=== PATIENT | female | born 1985 | race Caucasian/White ===

== ENCOUNTER → 2019-12-13 16:00 | Outpatient (ROUT) | payer OTHER, SELFPAY | PROVIDERS: Visit Provider Nurse Practitioner Obstetrics & Gynecology | DX: Z34.90 Encounter for supervision of normal pregnancy, unspecified, unspecified trimester (principal); Z36.85 Encounter for antenatal screening for Streptococcus B; Z3A.36 36 weeks gestation of pregnancy | CPT/HCPCS: 87081 ==

== ENCOUNTER → 2019-12-22 16:44 | Outpatient (CLI) | payer OTHER, SELFPAY ==
--- NOTE | 2019-12-22 16:52 | DI.US.S_ITS ---
PROCEDURE: US OB LIMITED INDICATIONS: SIZE LESS THAN DATES OUTSIDE/PRIOR DATING DATA: Last menstrual period (LMP):04/08/19. LMP-based estimated date of delivery (MARKO): 01/13/20. First dating scan (date and location): 12/22/19. Estimated date of delivery (MARKO) from first dating scan: 01/23/20. TECHNIQUE: Real-time scanning was performed of the fetus, with image documentation and biometric measurements. Endovaginal scanning: Performed COMPARISON: None. FINDINGS: General: A single living intrauterine gestation is present. Presentation: Vertex Placenta: Placental position is posterior, without previa. Amniotic fluid index: 10.7 cm, normal range is 5-24 cm. heart rate: 137 beats per minute. Maternal cervical canal: Not measured biometrics: Biparietal diameter: 36 weeks 1 day Head circumference: 36 weeks 3 days Abdominal circumference: 35 weeks 3 days Femur length: 36 weeks 2 days Estimated gestational age from initial scan: not applicable. Composite gestational age from present scan: 35 weeks 3 days Estimated weight: 2787 g Measurement variability for biometric dating: +/- 7 days from 14 weeks to 15 weeks 6 days gestation, +/- 10 days from 16 weeks to 21 weeks 6 days gestation, +/- 2 weeks from 22 weeks to 27 weeks 6 days gestation, +/- 3 weeks for 28 weeks gestation or later. weight reference: 4500 g or EFW >90/95% is considered macrosomia or large for gestational age. EFW <10% is small for gestational age. EFW 5% or less is considered intra-uterine growth restriction. Other: Not applicable. IMPRESSION: Single living intrauterine fetus with ultrasound estimated gestational age of 35 weeks 3 days corresponding to ultrasound MARKO 01/23/2020. Dictated by: Yessi Mahajan MD, PhD on 12/22/2019 at 18:32 Approved by: Yessi Mahajan MD, PhD on 12/22/2019 at 18:36
== END ==
PROVIDERS: Referring Provider Nurse Practitioner Obstetrics & Gynecology; Visit Provider Nurse Practitioner Obstetrics & Gynecology
DX: Z36.4 Encounter for antenatal screening for fetal growth retardation (principal); Z3A.35 35 weeks gestation of pregnancy
CPT/HCPCS: 76815

== ENCOUNTER → 2020-01-06 09:54 | Outpatient (CLI) | payer OTHER, SELFPAY ==
[2020-01-07 02:59] LABS: COVID19 Sendout Not Detected (Not Detect)
== END ==
PROVIDERS: Visit Provider Registered Nurse
DX: Z34.90 Encounter for supervision of normal pregnancy, unspecified, unspecified trimester (principal)
CPT/HCPCS: 87635

== ENCOUNTER 2020-01-08 07:27 | Inpatient (IN) | payer OTHER, SELFPAY ==
--- NOTE | 2020-01-08 07:51 | PM.OBHP.1 ---
OB HPI History of Present Condition Chief complaint: INDUCTION Narrative: Uyen Hammond is a 34 year old female @ [id number] by LMP and early US who presents for elective IOL. She has a hx of rapid labors and lives remotely from the hospital. both she and her , Michele, were screened for novel coronavirus 2 days ago with negative results. Uncomplicated PN care. GBS negative. No cramping, VB or LOF. Favorable CE @ last PN visit. Evaluation Evaluation Baseline heart rate: 140 Variability: Moderate (11-25) monitor accelerations: Present monitor decelerations: Absent Contraction Frequency (minutes): 0 Category of Tracing: I Cervical dilation (cm): 3 Cervical effacement (%): 90 station: -2 PFSH Family History (Updated 01/08/20 @ 09:15 by Selene Farr CNM) Father Hypertension Mother Hypertension Social History (Updated 01/08/20 @ 08:00 by Selene Farr CNM) marital status: number of children: 1 household members: spouse and children lives independently: Yes caregiver/support person: No housing: house education level: college occupational status: employed Smoking Status: Never smoker Meds Home Medications and Allergies Home Medications Medication Instructions Recorded Confirmed Type 21-iron fu-folic acid 1 tab PO DAILY 01/08/20 01/08/20 History [ Complete] Allergies Allergy/AdvReac Type Severity Reaction Status Date / Time No Known Drug Allergies Allergy Unverified 01/08/20 08:01 Review of Systems Review of Systems ROS: Yes All systems reviewed with the patient and are negative except as otherwise documented Exam Vital Signs (past 8 hours): BP 116/78, DW46ils, T36.3C Temporal Presentation: vertex Objective Labs Result Diagrams: 01/08/20 08:10 Assessment and Plan Assessment and Plan Assessment and Plan narrative: Admit, routine orders. IOL consent obtained. Begine pitocin, per protocol. Epidural once mark reglarly. James AROm once epidural has set up. reassess in 4 hours or sooner, PRN. Time Spent with Patient Total time spent with greater than 50% in coordination of care (as documented) at patient's floor/unit and/or counseling patient:: 15-24 minutes
[2020-01-08] MEDS: OXYTOCIN PREMIX 30 UNIT/500 ML PLAST..BAG IV (08:16)
[2020-01-08] MEDS: LACTATED RINGERS 1,000 ML 100 ML IV ×2 (08:16→12:52)
[2020-01-08 08:47] LABS: Add Manual Diff / Slide Review NO; Basophils Absolute Auto 0 /uL (0-100); Basophils Percent Auto 0.5 % (0-2); Eosinophils Absolute Auto 0 /uL (0-450); Eosinophils Percent Auto 0.4 % (2-4); Hemoglobin 12.4 g/dL (12.0-16.0); Lymphocytes Absolute Auto 1500 /uL (1100-4500); Lymphocytes Percent Auto 16.9 % (25-40); Mean Corpuscular Hemoglobin 31.8 PG (26-34); Mean Corpuscular Volume 89.8 fL (80-100); Monocytes Absolute Auto 400 /uL (0-900); Monocytes Percent Auto 4.5 % (3-14); Neutrophils Absolute Auto 7000 /uL (1500-7000); Neutrophils Percent Auto 77.7 % (50-75); Platelet Count 276 X10^3/uL (150-400); Red Cell Distribution Width 13.1 % (11.6-14.8); White Blood Cell Count 9.1 X10^3/uL (4.5-11.0)
[2020-01-08 08:48] LABS: Mean Corpuscular HGB Conc 35.5 % (30-36)
[2020-01-08 09:11] VITALS: BP 116/78
[2020-01-08] MEDS: FENT 2MCG/ML BUPIV 0.125% EPI 200 MCG/100 ML PLAST..BAG 10 MCG EPIDURAL (10:50)
--- NOTE | 2020-01-08 11:55 | PM.OBPNLAB ---
Date/Time Date Patient Seen: 01/08/20 Time Patient Seen: 11:45 Pain Control Pain control: epidural Comments: Patient elected epidural prior to AROM Pelvic Exam Dilation (cm): 4 Effacement (%): 90 station: -2 Comments: AROM preformed, small amount of clear fluid Contractions Contractions on admission: none Pitocin rate (mU/min): 6 Contraction frequency (min): 3 Contraction duration (min): 1 Status status: Category l Heart Rate Baseline: 125 Monitor Accelerations: Present Monitor Decelerations: Absent Monitor Variability: Moderate Assessment and Plan Assessment: induction ongoing Plan: continuous present management Comments: Encourage frequent position changes. Continue pitocin titration to adequate ctx pattern. Reassess in 4 hours or sooner, PRN.
--- NOTE | 2020-01-08 14:58 | PM.OBPRVD ---
Labor & Delivery Delivery date: 01/08/20 Intrapartal events: None and Precipitous Labor < 3 hours Cervical ripening method: none Induction method: per pitocin protocol Delivery augmentation: rupture of membranes Delivery monitor: external FHT and external uterine Route of delivery: Episiotomy description: None L&D Laceration Description: Perineal - 1st Degree Delivery repair: chromic Estimated blood loss (mL): 250 Anesthesia type: Epidural Narrative: Patient labored well with adequate epidural anesthesia. Was checked for c/o increasing rectal pressure and found to be 10/100%/+1. Patient pushed well with coaching to slow descent. NSVB of a vigorous baby boy in LAURA position w/ no NC and easy delivery of the shoulders. [place] was placed on maternal abdomen for drying and skin to skin. Apgars 9/9. Remaining 30 units of pitocin in 500mL LR was increased to 300mL/hr for AMTSL. After cessation of pulsation, the cord was double clamped by CNM and cut by FOB. Cord blood sample was collected and sent. Gentle cord traction led to spontaneous, Schultze delivery of an apparently intact placenta, membranes and 3VC. 1st degree perineal laceration was repaired w/ 3.0 Chromic in the usual fashion. Fundus immediately firm and bleeding small. QBL 250mL. Both mother and baby stable and skin to skin as I left the room. Baby 1: Infant gender: Male Presentation: vertex position: Right Occiput Anterior Placenta delivery description: Spontaneous cord vessel description: 3 Vessels score (1 min): 9 score (5 min): 9 Plan for aftercare: Routine PP orders. Anticipate d/c to home tomorrow.
[2020-01-08] MEDS: IBUPROFEN 600 MG TABLET PO (16:16)
[2020-01-08] MEDS: DOCUSATE 100 MG CAPSULE PO (23:20)
[2020-01-09] MEDS: IBUPROFEN 600 MG TABLET PO ×2 (01:18→07:47)
[2020-01-09] MEDS: LANOLIN OINT 7 GM 1 APPLIC TOP (07:47)
[2020-01-09] MEDS: PRENATAL VIT,CALC/IRON/FOLIC 1 TABLET 1 TAB PO (07:47)
[2020-01-09] MEDS: DOCUSATE 100 MG CAPSULE PO (07:48)
[2020-01-09 08:39] VITALS: BP 127/70; PULSE 91; RESP 16; TEMP 37.1
--- NOTE | 2020-01-09 10:02 | P.DS_ITS ---
Discharge Providers Provider Date of admission: 01/08/20 07:27 Discharge Date: 01/09/20 Primary care physician: Selene Farr CNM Consults: 01/08/20 07:44 Consult to Anesthesiology Urgent Comment: Completed Consulting Provider: Anesthesiologist Reason for consultation: when requested by patient Has provider been notified: No 01/09/20 14:53 Consult to Public Information Director Routine Comment: Discharge provider: Selene Farr CNM Summary Discharge Diagnosis (1) First degree perineal laceration during delivery: Status: Acute Problem Details: Patient is sitting up in bed, eager for discharge to home. Voiding and ambulating independently. well without concerns. Pain is well controlled w/ ibuprofen and Tylenol. Lochia light, no clots. Time Spent with Patient Time attestation: Total time spent providing and/or coordinating discharge services: Objective Labs Result Diagrams: 01/08/20 08:10 Labs: Laboratory Results - last 24 hr 01/08/20 08:10 Blood Type O Positive Antibody Screen Negative Exam Vital Signs (past 8 hours): - 01/09/20 08:39 Temperature 98.8 F Pulse Rate 91 H Respiratory Rate 16 Blood Pressure 127/70 Other: Fundus firm @ U-1, lochia light Discharge Plan Discharge Plan Patient Disposition: Home Discharge orders & Medications Prescriptions: New docusate sodium [Col-Rite] 100 mg capsule 100 mg PO BID 14 Days Qty: 28 RF: 0 acetaminophen 325 mg Tablet 650 mg PO Q6HR PRN (Reason: Pain, Mild (1-3)) 14 Days Qty: 60 RF: 2 ibuprofen 600 mg Tablet 600 mg PO Q6HR PRN (Reason: Pain, Mild (1-3)) 14 Days Qty: 60 RF: 1 Continued Complete 14 mg iron- 400 mcg Tablet 1 tab PO DAILY RF: 0 Follow up/Referrals: Selene Farr CNM [Primary Care Provider] - Diet/Activity/Treatments Diet: Diet as Tolerated and Regular Activity: pelvic rest x 6 weeks Skin/Wound/Dressing Care Report to your healthcare provider any signs of infection, such as:: chills, fever, increased pain, unusual drainage and unusual redness Visit Report/Discharge Packet Instructions: DI for Depression Stand Alone Forms: Discharge: Care Visit Report Forms: Patient Portal/API, Stroke Signs & Symptoms Discharge Data Primary Care Provider: Selene Farr
== END 2020-01-09 12:00 | disposition home or self-care (01) | DRG 807 ==
PROVIDERS: Admitting Provider Nurse Practitioner Obstetrics & Gynecology; PCP Nurse Practitioner Obstetrics & Gynecology; Referring Provider Nurse Practitioner Obstetrics & Gynecology; Visit Provider Nurse Practitioner Obstetrics & Gynecology
DX: O70.0 First degree perineal laceration during delivery (principal); Z37.0 Single live birth; Z3A.39 39 weeks gestation of pregnancy; O62.3 Precipitate labor
CPT/HCPCS: 01967; 36415; 59050; 85025; 86850; 86900; 86901; G0379; J2590

== ENCOUNTER 2020-05-29 21:42 | Observation (INO) | payer OTHER, SELFPAY ==
--- NOTE | 2020-05-29 21:46 | ED_ITS ---
HPI - General Adult General Chief complaint: Abdominal Pain Stated complaint: Patel from [facility] Time Seen by Provider: 05/29/20 21:44 Source: patient Mode of arrival: Ambulatory Limitations: no limitations History of Present Illness HPI narrative: 34-year-old female who arrives by airlift from [place] for concerns of appendicitis. Was seen at an outside facility where she had symptoms of several days of epigastric migrating to right lower quadrant abdominal pain. Some nausea. No vomiting. No change in bowel habits. No urinary symptoms. Is 4 months . Is breast-feeding. Went to this outside facility where she had blood drawn. Had a normal white blood cell count. Normal chemistries. test was negative. Chambers 19 virus test was negative. Had a right lower quadrant abdominal ultrasound which showed an acute appendicitis with a noncompressible appendix measuring up to 8 mm with a small amount of periappendiceal fluid and periappendiceal fat stranding. The transferring facility contacted General surgery at this facility who agreed to see the patient. Patient also received pain medication and Zosyn. Patient reports that she is feeling better after the pain medication. No fevers. Related Data Home Medications Medication Instructions Recorded Confirmed Complete 1 tab PO DAILY 01/08/20 01/08/20 Allergies Allergy/AdvReac Type Severity Reaction Status Date / Time No Known Drug Allergies Allergy Unverified 01/08/20 08:01 Review of Systems Constitutional Constitutional: Denies fever(s) Cardiovascular Cardiovascular: Denies chest pain and Denies dyspnea Respiratory Respiratory: Denies dyspnea Gastrointestinal Gastrointestinal: Reports abdominal pain, Denies nausea and Denies vomiting Genitourinary Genitourinary: Denies dysuria Genitourinary: Denies dysuria Musculoskeletal Musculoskeletal: Denies arthralgias and Denies myalgias Integumentary/Breasts Skin/Breast: Denies rash Neurologic Neurologic: Denies behavioral changes Psychiatric Psychiatric: Denies behavioral changes Hematologic/Lymphatic Hematologic/Lymphatic: Denies easy bleeding and Denies easy bruising Allergic/Immunologic Allergic/Immunologic: Denies urticaria Patient History Medical History First degree perineal laceration during delivery (Inactive) Surgical History H/O adenoidectomy (Inactive) Family History Father Hypertension Mother Hypertension Social History marital status: number of children: 1 household members: spouse and children lives independently: Yes caregiver/support person: No housing: house education level: college occupational status: employed Smoking Status: Never smoker Smoking Status: Never smoker Exam Initial Vital Signs Initial Vital Signs: Vital Signs Temperature 98.7 F 05/29/20 21:48 Pulse Rate 78 05/29/20 21:48 Respiratory Rate 20 05/29/20 21:48 Blood Pressure 115/70 05/29/20 21:48 Pulse Oximetry 99 05/29/20 21:48 Const General: cooperative and comfortable Limitations: mental status not altered HENMT Head: normal to inspection and normocephalic Resp Effort & Inspection: normal respiratory effort Auscultation: clear to auscultation bilaterally Cardio Rate: regular rate Rhythm: regular rhythm GI Inspection: non-distended Palpation: soft, No firm and tender (Mild tenderness to palpation right lower quadrant) Back/Spine/Pelvis Back: No CVA tenderness Skin Lesions: no lesions Rashes: no rashes Neuro General: patient alert and patient awake Cognition: normal cognition Speech: speech normal Extrem General: normal to inspection and capillary refill normal Psych Appearance: grossly normal and well kempt Course Orders Ordered: ED Orders 05/29/20 21:44 COVID19 -ED/INPAT/OR/L&D Stat 05/29/20 22:23 CT abdomen pelvis w con Stat 05/29/20 22:55 Complete Blood Count MAN DIFF Stat Comprehensive Metabolic Panel Stat Lipase Stat Test Serum,Qual Stat Sodium Chloride (Normal Saline 0.9%) 1,000 mls @ 125 mls/hr IV CONT MIKEL Last Admin: 05/29/20 23:32 Dose: 125 mls/hr Documented by: JAIME Vital Signs Vital signs: Vital Signs - 8 hr 05/29/20 21:48 05/29/20 23:19 05/29/20 23:30 Temperature 98.7 F Pulse Rate 78 69 71 Respiratory Rate 20 Blood Pressure 115/70 117/65 Pulse Oximetry 99 98 99 Medical Decision Making Medical Records Medical records reviewed: Yes I reviewed the patient's medical records. Lab Data Lab results reviewed: Yes I reviewed the patient's lab results. Result diagrams: 05/29/20 22:55 05/29/20 22:55 Labs: Lab Results 05/29/20 05/29/20 05/29/20 Range/Units 22:55 22:55 22:55 WBC 13.3 H (4.5-11.0) X10^3/uL RBC 4.08 (4.0-5.2) X10^6/uL Hgb 12.2 (12.0-16.0) g/dL Hct 35.1 L (36-46) % MCV 86.1 (80-100) fL MCH 29.8 (26-34) PG MCHC 34.7 (30-36) % RDW 12.9 (11.6-14.8) % Plt Count 275 (150-400) X10^3/uL Sodium 139 (137-145) mmol/L Potassium 3.5 (3.4-5.1) mmol/L Chloride 108 H (98-107) mmol/L Carbon Dioxide 25 (22-32) mmol/L BUN 10 (7-17) mg/dL Creatinine 0.61 (0.52-1.04) mg/dL Estimated GFR > 60.0 (>60) mL/min BUN/Creatinine Ratio 16.4 (6-22) Glucose 81 (70-100) mg/dL Calcium 8.7 (8.4-10.2) mg/dL Total Bilirubin 0.7 (0.2-1.3) mg/dL AST 23 (14-36) IU/L ALT 18 (<35) IU/L Alkaline Phosphatase 75 (38-126) U/L Total Protein 6.3 (6.3-8.2) g/dL Albumin 3.7 (3.5-5.0) g/dL Globulin 2.6 (1.7-4.1) g/dL Albumin/Globulin Ratio 1.4 (1.0-2.8) Lipase 86 (23-300) U/L Serum , Qual Negative (Negative) Imaging Data CT scan - abdomen/pelvis: Radiologist's Impression: Finding suspicious for mild/early acute appendicitis without complications. MDM Narrative Medical decision making narrative: COVID-19 is negative. This was confirmed from transferring facility. Repeat labs show an increasing leukocytosis. test negative. CT scan requested by general surgery. This confirms acute appendicitis. Discussed the case with Dr. Lua with General surgery who will admit the patient for surgical treatment. Patient informed of admission and surgery. She expressed understanding and agreement. Discharge Plan Departure Patient Disposition: Admitted As Inpatient Clinical Impression: Appendicitis Qualifiers: Appendicitis type: acute appendicitis Acute appendicitis type: unspecified acute appendicitis type Qualified Code(s): K35.80 - Unspecified acute appendicitis Referrals: Selene Farr CNM [Primary Care Provider] -
[2020-05-29 21:48] VITALS: BP 115/70; PULSE 78; RESP 20; TEMP 37.1; O2SAT 99
--- NOTE | 2020-05-29 22:23 | DI.CT.S_ITS ---
PROCEDURE: CT ABDOMEN PELVIS W CON INDICATIONS: RLQ ABD pain concern for appy TECHNIQUE: After the administration of intravenous contrast, 5 mm thick sections acquired from the diaphragm to the symphysis. 5 mm coronal and sagittal reformats were acquired. For radiation dose reduction, the following was used: automated exposure control, adjustment of mA and/or kV according to patient size. COMPARISON: None. FINDINGS: Image quality: Excellent. ABDOMEN: Lung bases: Lung bases are clear. Heart size is normal. Subcentimeter hepatic foci are statistically cysts or hemangiomas, although technically too small to characterize accurately and therefore nonspecific. Gallbladder unremarkable . Biliary system is non dilated. Pancreas enhances normally. Spleen is normal in size and enhancement. No adrenal nodules. Kidneys demonstrate normal size and enhancement, without hydronephrosis. Appendix is seen in the right low pelvis, and mildly distended with fluid and debris/stool. This measures approximately 6 mm in diameter. There is possible mucosal enhancement and mural thickening. Low lying cecum. No free fluid or air. Colonic diverticulosis is seen without evidence of acute complication. Nodes and vessels: No retroperitoneal or mesenteric adenopathy by size criteria. Aorta and inferior vena cava are normal in size. Miscellaneous: No ventral hernias. PELVIS: Genitourinary: Bladder unremarkable. Small amount of fluid in the cul-de-sac. Miscellaneous: No inguinal hernias or adenopathy. Bones: No suspicious bony lesions. No vertebral body compression fractures. IMPRESSION: Findings suspicious for early versus low-grade acute appendicitis. Please correlate clinically and with laboratory data. Additional chronic and incidental findings as above. Findings concordant with the preliminary study interpretation provided at the time of the exam. Dictated by: Idris Roland M.D. on 05/30/2020 at 8:03 Approved by: Idris Roland M.D. on 05/30/2020 at 8:08
[2020-05-29 23:15] LABS: Hematocrit 35.1 % (36-46); Hemoglobin 12.2 g/dL (12.0-16.0); Mean Corpuscular HGB Conc 34.7 % (30-36); Mean Corpuscular Hemoglobin 29.8 PG (26-34); Mean Corpuscular Volume 86.1 fL (80-100); Platelet Count 275 X10^3/uL (150-400); Red Blood Cell Count 4.08 X10^6/uL (4.0-5.2); Red Cell Distribution Width 12.9 % (11.6-14.8); White Blood Cell Count 13.3 X10^3/uL (4.5-11.0)
[2020-05-29 23:19] VITALS: PULSE 69; O2SAT 98
[2020-05-29 23:24] LABS: Alanine Aminotransferase 18 IU/L (<35); Albumin 3.7 g/dL (3.5-5.0); Albumin Globulin Ratio 1.4 (1.0-2.8); Alkaline Phosphatase 75 U/L (38-126); Aspartate Aminotransferase 23 IU/L (14-36); BUN Creatinine Ratio 16.4 (6-22); Bilirubin Total 0.7 mg/dL (0.2-1.3); Blood Urea Nitrogen 10 mg/dL (7-17); Calcium 8.7 mg/dL (8.4-10.2); Carbon Dioxide 25 mmol/L (22-32); Chloride 108 mmol/L (98-107); Estimated Glomerular Filt Rate > 60.0 mL/min (>60); Globulin 2.6 g/dL (1.7-4.1); Glucose 81 mg/dL (70-100); HEMOLYSIS < 15 (0-50); Lipase 86 U/L (23-300); Potassium 3.5 mmol/L (3.4-5.1); Sodium 139 mmol/L (137-145); Total Protein 6.3 g/dL (6.3-8.2)
[2020-05-29 23:30] VITALS: BP 117/65; PULSE 71; O2SAT 99
[2020-05-29] MEDS: SODIUM CHLORIDE 0.9% 1,000 ML 125 ML IV (23:32)
[2020-05-29 23:35] LABS: Pregnancy Test Serum,Qual Negative (Negative)
[2020-05-30] VITALS (14 sets, daily range): BP systolic 104–139; BP diastolic 54–83; PULSE 57–90; RESP 10–20; TEMP 36.4–37.2; O2SAT 94–99; BMI 23.6
--- NOTE | 2020-05-30 | PATH_ITS ---
[facility] Accession Number: [id number] . 01 Material submitted: . appendix - APPENDIX . 02 Diagnosis: Appendix, Appendectomy: Acute suppurative appendicitis with serositis. Negative for dysplasia and malignancy. MRV 06/03/2020 1044 Local . 02 Electronically signed: . Dara Antonio MD, Pathologist NPI- [id number] . 01 Gross description: . Received in formalin, labeled appendix, and consists of an 8.5 cm in length by 1.2 cm in diameter vermiform appendix with attached kim-yellow lobulated mesoappendix measuring 3.0 x 1.0 x 0.6 cm. The serosa is kim-pink and smooth with focal areas of purulent exudate. Sectioning reveals a kim mucosa and a lumen measuring up to 0.5 cm in diameter. The wall thickness measures 0.2 cm in thickness and no perforations are identified. Latex Caster sections are submitted. . A1: margin, en face (blue) and central cross-sections. A2: bisected tip. ([id number]) /MRV 05/31/2020 1003 Local . 02 Pathologist provided ICD-10: K35.80 . 02 CPT . 939727 Performed at: 01 [facility] [address], [place], [place] [id number] MD Ilir Herrera MD Phone: [phone] Performed at: 02 [facility] [address] [place], [place] [id number] MD Dara Antonio MD Phone: [phone]
--- NOTE | 2020-05-30 00:05 | PM.HP.1 ---
History of Present Illness History of Present Illness Date Patient Seen: 05/30/20 Time Patient Seen: 00:05 Chief complaint: Appy from I Narrative: The patient is a woman who developed abdominal pain on Wednesday that was epigastric and then mid abdominal the moved her right lower quadrant. She has never had pain like this before. She has had months of diarrhea with 1 loose stool every morning. Anorexic without vomiting. Pain increases with movement but she did have pain medicine prior to her arrival transferred from [facility]. Patient History Medical History First degree perineal laceration during delivery (Inactive) Surgical History H/O adenoidectomy (Inactive) Family & Social History Family History Father Hypertension Mother Hypertension Social History: household members spouse,children lives independently Yes caregiver/support person No Tobacco & Substance use: Smoking Status Never smoker Meds Home Medications and Allergies Home Medications Medication Instructions Recorded Confirmed Type Complete 1 tab PO DAILY 01/08/20 05/29/20 History Allergies Allergy/AdvReac Type Severity Reaction Status Date / Time No Known Drug Allergies Allergy Unverified 01/08/20 08:01 Review of Systems Review of Systems Narrative: No problems with toothache earache trouble swallowing no cough cold or asthma. She does have an occasional irregular heart beat. No no murmurs. No chest pain or other cardiac disease is known. No black or bloody bowel movements. No dysuria or hematuria. Last period was prior to . She had a normal vaginal delivery about 5 months ago. She is breast feeding. No seizures or blackouts. No psychiatric problems like anxiety or depression. Exam Vital Signs (past 8 hours): - 05/29/20 21:48 05/29/20 23:19 05/29/20 23:30 Temperature 98.7 F Pulse Rate 78 69 71 Respiratory Rate 20 Blood Pressure 115/70 117/65 Pulse Oximetry 99 98 99 Oxygen Delivery Method Room Air Narrative Exam Narrative: Very pleasant woman in no apparent distress. Her vital signs are noted. Eyes are nonicteric. Pupils round reactive to light. Lungs are clear to auscultation without rales or rhonchi. Equal percussion. Heart regular rate and rhythm without murmur gallop. No bruit. Her abdomen is scaphoid and soft. There is tenderness without guarding in the right lower abdomen. No ventral hernias appreciated. Patient is alert and oriented. Speech rate and content are appropriate. Affect is appropriate. Objective Imaging CT scan - abdomen: My impression: Thickened appendix unusually deep in the pelvis with a large amount of stool in the cecum. Labs Result Diagrams: 05/29/20 22:55 05/29/20 22:55 Labs: Laboratory Results - last 24 hr 05/29/20 05/29/20 05/29/20 22:55 22:55 22:55 WBC 13.3 H RBC 4.08 Hgb 12.2 Hct 35.1 L MCV 86.1 MCH 29.8 MCHC 34.7 RDW 12.9 Plt Count 275 Sodium 139 Potassium 3.5 Chloride 108 H Carbon Dioxide 25 BUN 10 Creatinine 0.61 Estimated GFR > 60.0 BUN/Creatinine Ratio 16.4 Glucose 81 Calcium 8.7 Total Bilirubin 0.7 AST 23 ALT 18 Alkaline Phosphatase 75 Total Protein 6.3 Albumin 3.7 Globulin 2.6 Albumin/Globulin Ratio 1.4 Lipase 86 Serum , Qual Negative Assessment & Plan Assessment & Plan narrative: Initially patient was presented with an ultrasound but because of her atypical story and initial wore normal white count a CT scan was performed. Repeat labs however showed an elevated white blood cell count and given the location of the appendix IA find it hard to believe they sought with an ultrasound. In any event she does have acute appendicitis. There is a fair amount of inflammation and some fluid around it which to me is worrisome for possible perforation especially since her symptoms actually seemed to have started on Wednesday. I am not sure how chronic diarrhea fits into this picture if at all. Will proceed to the operating room if. Given the fact that her baby only breast feeds and has not been taking a bottle I would prefer to do this promptly so that she can return to breast feeding. I have discussed the operation with her including risks of bleeding infection injury to internal organs and hernia. She appears to understand wishes to proceed. The possibility of other diagnoses and other procedures was also discussed with her.
[2020-05-30 00:07] LABS: Neutrophils Absolute Manual 10773 /uL (3000-5900); Total Cells Counted 100
[2020-05-30 00:08] LABS: RBC Morphology Normal Morphology
[2020-05-30] MEDS: LACTATED RINGERS 1,000 ML 42 ML IV ×2 (01:38→02:43)
[2020-05-30] MEDS: PIPERACILLIN-TAZO 3.375 GM/50 ML FROZ.PIGGY IV (01:45)
--- NOTE | 2020-05-30 02:18 | SUR.OPER ---
Supine on padded OR bed, head on pillow, arms secured on padded arm boards at <90 degrees abduction, legs uncrossed, safety belt at thigh, tape over blanket over lower legs.
[2020-05-30] MEDS: BUPIVACAINE 0.5% (PF) VIAL 30 ML INJ (02:31)
--- NOTE | 2020-05-30 03:20 | PM.OP.1 ---
Operative Date/Time/Diagnoses Date of procedure: 05/30/20 Time of procedure: 03:21 Pre-op diagnosis: Acute appendicitis Post-op diagnosis: same Procedure & Clinicians Procedure: Laparoscopic appendectomy Same procedure as scheduled: Yes Indications: Right lower quadrant tenderness an abnormal CT scan and an elevated white blood cell count Surgeon: Mark Lua Click Yes if Unassisted: Yes Anesthesia Type: General Operative Notes Findings: Inflammation at the base of the appendix. The appendix beyond the bases actually normal. No evidence of perforation. Closure Type: primary Specimen(s): other (Appendix) Prosthetic devices, grafts, tissues, transplants, or devices: None Estimated Blood Loss (mL): 5 Blood products transfused: none Procedure in detail: The patient is placed supine on the operating room table and underwent general endotracheal anesthesia. A Seay catheter was inserted and she was prepped draped the usual fashion. Local anesthetic was infiltrated beneath the umbilicus. Curvilinear incision was made and carried down under direct vision through the fascia into the peritoneal cavity. Stay sutures of 0 Vicryl were placed in the fascia. A 12 mm port was inserted and 2 additional 5 mm ports were placed 1 between the pubis and umbilicus in the 2nd left lower quadrant. The patient was repositioned on the table in the cecum elevated of the pelvis. The appendix was readily identified. It actually appeared to be normal except at the base which was inflamed. I elevated the appendix and divided the mesoappendix using cautery and sharp dissection. The artery was cauterized carefully and there was no bleeding from it. The base was cleaned and just beyond the base of the appendix the cecal wall was soft and pliable. I inserted a 45 mm linear stapling device and placed it across the cecum just beyond the base of the appendix in normal appearing cecum. The tissue was transected the appendix from the cecum and immediately placed in a bag. He was removed without difficulty or spillage. The staple line looked intact. The right lower quadrant was irrigated as was the pelvis. All the fluid was suctioned out. There was no other evidence of abnormality. The ports were all removed. The stay sutures at the umbilicus were tied and additional 2 0 PDS was placed between them. The wounds were irrigated and 4 0 Vicryl subcuticular interrupted sutures were used to close all of the skin incisions. Mastisol and Steri-Strips were applied and the patient was awakened extubated and taken recovery area in good condition. Complications: none Post-operative Condition: stable Disposition: PACU Plan for aftercare: Toe observation
[2020-05-30] MEDS: fentaNYL 100 MCG/2 ML INJ IV ×2 (03:22→03:27)
[2020-05-30] MEDS: BENZOCAINE/MENTHOL 1 LOZ PKT 1 EACH PO (03:42)
[2020-05-30] MEDS: LACTATED RINGERS 1,000 ML 100 ML IV (04:26)
--- NOTE | 2020-05-30 05:21 | PC.ADMIT ---
Patient admitted to room 204 from PACU at 0400 following lap appendectomy. Is alert and oriented. Breath sounds CTA with RA sat of 98%. HRR. Denies nausea. BT present. Assisted to bathroom, SBA, and patient voided 150cc urine but states she has some burning/dysuria; RIGGING MAN reported patient had catheter in OR which was removed in PACU. Is able to move herself in bed. 3 bandaid dressings to abdomen intact and without drainage. No other skin issues. Bilateral calf SCD's applied upon arrival to room. Spouse present. States only pain she is having is in the right shoulder, severity of 3/10, but declines offer of pain medication. Fall risk score is low. Oriented to call light and bed controls. [address] Admission Note: The patient,Uyen Hammond,34 y/o, was given written information regarding hospital policies, unit procedures and contact persons. Patient's smoking status: Never smoker. Vital Signs - 8 hr 05/29/20 21:48 05/29/20 23:19 05/29/20 23:30 Temperature 98.7 F Pulse Rate 78 69 71 Respiratory Rate 20 Blood Pressure 115/70 117/65 Pulse Oximetry 99 98 99 05/30/20 00:00 05/30/20 00:01 05/30/20 00:30 Temperature Pulse Rate 84 69 78 Respiratory Rate Blood Pressure 127/61 Pulse Oximetry 99 97 99 05/30/20 03:12 05/30/20 03:17 05/30/20 03:22 Temperature 98.3 F Pulse Rate 90 67 77 Respiratory Rate 20 11 L 10 L Blood Pressure 123/76 127/75 126/83 Pulse Oximetry 98 97 96 05/30/20 03:30 05/30/20 03:35 05/30/20 03:45 Temperature 98.9 F Pulse Rate 60 67 67 Respiratory Rate 12 12 11 L Blood Pressure 119/72 111/67 118/72 Pulse Oximetry 96 99 98 05/30/20 04:00 05/30/20 04:30 05/30/20 05:00 Temperature 98.3 F 98.0 F 98.0 F Pulse Rate 63 59 L 57 L Respiratory Rate 18 18 18 Blood Pressure 119/64 111/68 139/54 L Pulse Oximetry 98 96 98
[2020-05-30] MEDS: IBUPROFEN 400 MG TABLET PO (08:48)
--- NOTE | 2020-05-30 12:24 | P.DS_ITS ---
History of Present Illness History of Present Illness Chief complaint: Appy from [facility] Narrative: The patient is a woman who developed abdominal pain on Wednesday that was epigastric and then mid abdominal the moved her right lower quadrant. She has never had pain like this before. She has had months of diarrhea with 1 loose stool every morning. Anorexic without vomiting. Pain increases with movement but she did have pain medicine prior to her arrival transferred from [facility]. Discharge Providers Provider Date of admission: 05/30/20 00:00 Discharge Date: 05/30/20 Primary care physician: Mejia Calle MD Consults: 05/30/20 03:40 Consult to Discharge Planning Routine Comment: Discharge provider: Mark Lua MD Summary Hospital Course Discharge Diagnosis: Acute appendicitis. Hospital Course: The patient underwent a laparoscopic appendectomy. Her appendix did not appear to be ruptured. Her postoperative course was smooth. She was ambulating the same day and tolerating p.o. well. She is discharged on ibuprofen for pain to follow-up as needed. Status at Discharge Cognitive/behavioral status at discharge: oriented Functional status at discharge: independent ambulation Overall status at discharge: patient is progressing back to baseline Exam Vital Signs (past 8 hours): - 05/30/20 04:30 05/30/20 05:00 05/30/20 06:00 Temperature 98.0 F 98.0 F 98.5 F Pulse Rate 59 L 57 L 61 Respiratory Rate 18 18 18 Blood Pressure 111/68 139/54 L 104/58 L Pulse Oximetry 96 98 94 05/30/20 07:12 Temperature 97.5 F L Pulse Rate 75 Respiratory Rate 16 Blood Pressure 111/67 Pulse Oximetry 94 Oxygen Delivery Method Room Air Oxygen Flow Rate 0 Narrative Exam Narrative: Abdomen is scaphoid soft . Band-Aids a dry and intact. Objective Labs Result Diagrams: 05/29/20 22:55 05/29/20 22:55 Labs: Laboratory Results - last 24 hr 05/29/20 05/29/20 05/29/20 22:55 22:55 22:55 WBC 13.3 H RBC 4.08 Hgb 12.2 Hct 35.1 L MCV 86.1 MCH 29.8 MCHC 34.7 RDW 12.9 Plt Count 275 Total Counted 100 Seg Neutrophils % 75.0 H Band Neutrophils % 6.0 Lymphocytes % (Manual) 16.0 L Monocytes % (Manual) 2.0 Basophils % (Manual) 1.0 Neutrophils # (Manual) 02031 H RBC Morphology Normal morphology Sodium 139 Potassium 3.5 Chloride 108 H Carbon Dioxide 25 BUN 10 Creatinine 0.61 Estimated GFR > 60.0 BUN/Creatinine Ratio 16.4 Glucose 81 Calcium 8.7 Total Bilirubin 0.7 AST 23 ALT 18 Alkaline Phosphatase 75 Total Protein 6.3 Albumin 3.7 Globulin 2.6 Albumin/Globulin Ratio 1.4 Lipase 86 Serum , Qual Negative Discharge Assessment & Plan Assessment and Plan Assessment: Doing well postop. Discharge to follow up in the office by either myself or her primary care provider since she lives on [facility]. Discharge Plan Discharge Plan Patient Disposition: Home Discharge comment: Your appendix did not appear to be ruptured. If your di arrhea persist he should have her stool tested for pathogens. Discharge orders & Medications Prescriptions: New ibuprofen 600 mg tablet 600 mg PO TID PRN (Reason: pain) Qty: 14 RF: 0 Continued Complete 14 mg iron- 400 mcg Tablet 1 tab PO DAILY RF: 0 omega 8-xiu-ruj-fish oil [Fish Oil] 1,000 mg (120 mg-180 mg) Capsule 1 cap PO DAILY RF: 0 Follow up/Referrals: Selene Farr CNM [Primary Care Provider] - Mejia Calle MD [Non-Staff] - 2 Weeks (If Dr. Calle will see you. If not call my office the make an appointment to see me.([phone] [facility]). If you need to reach a doctor from our practice please call our office. If the office is closed listen to the entire message and at the end you will be connected with the page tire regrooving machine operator who will call the doctor on-call for our pra ctice.) Mark Lua MD [Physician] - (Please call Dr. Lua's office to schedule your follow up appointment.) Diet/Activity/Treatments Diet: Diet as Tolerated Activity: Try not to lift over 10 lb or strain for the next 4 weeks. You may walk. Try to have someone lift your baby into your arms rather than picking him up. Skin/Wound/Dressing Care Report to your healthcare provider any signs of infection, such as:: chills, fever, night sweats, increased pain, unusual drainage and unusual redness Dressing: Remove the Band-Aids tomorrow and shower. No pool or tub for 2 weeks. Visit Report/Discharge Packet Instructions: DI for an Appendectomy, DI for Laparoscopy, [facility]: Wound Care Visit Report Forms: Patient Portal/API, Stroke Signs & Symptoms Discharge Data Primary Care Provider: Selene Farr Attending Provider: Mark Lua Admkendall Date/Time: 05/30/20 00:00
--- NOTE | 2020-05-30 12:44 | PC.NURSE ---
DISCHARGE: PATIENT TOLERATED LUNCH, READY FOR DISCHARGE. CONFIRMS UNDERSTANDING OF ALL DC HOME INSTRUCTIONS, WILL HOUSEKEEPER IBUPROFEN SCRIPT ELECTRONICALLY SENT TO HER PHARMACY. IV DC'D INTACT. SPOUSE HERE TO TAKE PATIENT HOME. PRIORITY BOARDING PASS PROVIDED.
--- NOTE | 2020-05-30 13:00 | CM.DANOTE ---
DCP: Case received, EMR reviewed and met with patient. , Michele, was at bedside. Introduced self and role. Patient independent at baseline, and was able to complete DCP assessment. Patient is a 34 year old female who admitted early this morning to the care of the hospitalist/surgical team. PCP: Dr. Farr. Payer: confirmed: [employer]. Patient came to the hospital via air transportation from [place] for abdominal pain. Patient was diagnosed with an acute appendicitis. She had appendectomy this morning. Met with patient briefly, in the room. She is alert and oriented, pleasant. She resides with her in [place], and has a 4 month old baby. P: Patient is supposed to be discharged home today. Shelley Stinson RN/[facility]
--- NOTE | 2020-06-12 18:40 | PC.NURSE ---
Late Entry; LR infusion initiated 05/30 at 04:26 discontinued at time of discharge, 12:56.
== END 2020-05-30 12:56 | disposition home or self-care (01) ==
LOC: ED 22:43 → AC 05-30 00:01
PROVIDERS: Admitting Provider Specialist; Emergency Provider Emergency Medicine; PCP Nurse Practitioner Obstetrics & Gynecology; Referring Provider Emergency Medicine; Visit Provider Specialist
PROC: 0DTJ4ZZ Resection of Appendix, Percutaneous Endoscopic Approach (ICD-10-PCS; CPT 44970; principal; 2020-05-30 01:30)
DX: K35.80 Unspecified acute appendicitis (principal)
CPT/HCPCS: 44970; 74177; 80053; 83690; 84703; 85025; 87070; 87075; 87205; 96361; 96374; 96375; 99219; 99283; 99284; G0378; J0330; J1100; J2405; J2543; J2704; J3010; Q9967

== ENCOUNTER 2024-07-28 12:46 | Emergency (ER) | payer OTHER, MEDICAID, SELFPAY ==
[2020-05-30 04:35] VITALS: BMI 23.6
[2024-07-28] VITALS (14 sets, daily range): BP systolic 129–188; BP diastolic 69–100; PULSE 65–92; RESP 14–16; TEMP 36.9–37.2; O2SAT 96–100; BMI 21.3
--- NOTE | 2024-07-28 13:14 | ED_ITS ---
HPI - Recheck/Abnormal Lab/Rx General Chief Complaint: Recheck/Abnormal Lab/Rx Stated Complaint: swelling in arms, abd normal labs Time Seen by Provider: 07/28/24 13:13 Source: patient Mode of arrival: Ambulatory History of Present Illness HPI narrative: 38-year-old female arrived here by private vehicle, sent for bilateral upper extremity venous Doppler studies, for wauzo-traazmu-nrhz-left arm swelling. Patient had swelling xdkzq-uszqgyo-seaj-left upper extremity for the last 2 weeks after initial triceps workout, no subsequent interim recurrent injuries. Also feels that she can not get a good deep breath. Related Data Home Medications Medication Instructions Recorded Confirmed vits,calcium 21-iron fum 1 tab PO DAILY 01/08/20 06/19/20 14 mg iron-folic acid 400 mcg tablet ( Complete) omega 9-hog-mol-fish oil 1,000 mg 1 cap PO DAILY 05/30/20 06/19/20 (120 mg-180 mg) capsule (Fish Oil) Previous Rx's Medication Instructions Recorded ibuprofen 600 mg tablet 600 mg PO TID PRN pain #14 tabs 05/30/20 Allergies Allergy/AdvReac Type Severity Reaction Status Date / Time No Known Drug Allergies Allergy Verified 06/19/20 13:19 Patient History Medical History (Updated 07/28/24 @ 17:24 by Efrain Guillen MD) First degree perineal laceration during delivery Surgical History H/O adenoidectomy Family History Father Hypertension Mother Hypertension Social History marital status: number of children: 1 household members: spouse and children lives independently: Yes caregiver/support person: No housing: house education level: college occupational status: employed Smoking Status: Never smoker alcohol intake: current Smoking Status: Never smoker alcohol intake frequency: a few times a week Substance Use Type: does not use Exam Initial Vital Signs Initial Vital Signs: Vital Signs Temperature 98.4 F 07/28/24 12:55 Pulse Rate 69 07/28/24 12:55 Respiratory Rate 14 07/28/24 12:55 Blood Pressure 188/100 H 07/28/24 12:55 Pulse Oximetry 100 07/28/24 12:55 Oxygen Delivery Method Room Air 07/28/24 12:55 Course Orders Ordered: Discontinued Medications Cefdinir (Cefdinir 300 Mg Capsule) 300 mg PO NOW ONE Stop: 07/28/24 15:27 Last Admin: 07/28/24 15:34 Dose: 300 mg Documented By: JENNA Sodium Chloride (Normal Saline 0.9%) 1,000 mls @ 1,000 mls/hr IV BOLUS ONE Stop: 07/28/24 15:22 Last Infusion: 07/28/24 16:31 Dose: Infused Documented By: Admin: 07/28/24 14:34 Dose: 1,000 mls/hr Documented By: PAPI Vital Signs Vital signs: Vital Signs - 8 hr 07/28/24 12:55 07/28/24 13:05 07/28/24 13:23 Temperature 98.4 F Pulse Rate 69 65 Respiratory Rate 14 Blood Pressure 188/100 H 129/69 Pulse Oximetry 100 100 Oxygen Delivery Method Room Air 07/28/24 13:23 07/28/24 13:30 07/28/24 13:30 Temperature Pulse Rate 67 68 Respiratory Rate Blood Pressure 134/82 Pulse Oximetry 98 97 Oxygen Delivery Method 07/28/24 14:01 07/28/24 14:30 07/28/24 15:12 Temperature Pulse Rate 70 68 Respiratory Rate Blood Pressure Pulse Oximetry 99 99 96 Oxygen Delivery Method 07/28/24 15:30 07/28/24 16:00 07/28/24 16:57 Temperature 98.9 F Pulse Rate 77 70 92 H Respiratory Rate 16 Blood Pressure 144/80 H Pulse Oximetry 98 98 99 Oxygen Delivery Method MDM - Recheck/Abnormal Lab/Rx Lab Data Attestation: I reviewed the patient's lab results. Lab results narrative: White blood cell count 4700, hemoglobin 13, platelets 249740. Basic metabolic panel unremarkable, liver function show mild transaminitis, normal T bili noted. Urinalysis shows infection changes, urine culture requested 07/28/24 13:21 07/28/24 13:21 Labs: Lab Results 07/28/24 07/28/24 Range/Units 13:21 15:06 WBC 4.7 (4.5-11.0) X10^3/uL RBC 4.19 (4.0-5.2) X10^6/uL Hgb 13.0 (12.0-16.0) g/dL Hct 37.3 (36-46) % MCV 88.9 (80-100) fL MCH 31.1 (26-34) PG MCHC 35.0 (30-36) % RDW 13.0 (11.6-14.8) % Plt Count 328 (150-400) X10^3/uL Neut % (Auto) 58.6 (50-75) % Lymph % (Auto) 34.0 (25-40) % Rich % (Auto) 4.8 (3-14) % Eos % (Auto) 1.6 L (2-4) % Baso % (Auto) 1.0 (0-2) % Neut # (Auto) 2800 (5399-8161) /uL Lymph # (Auto) 1600 (3306-9393) /uL Rich # (Auto) 200 (0-900) /uL Eos # (Auto) 100 (0-450) /uL Baso # (Auto) 0 (0-100) /uL Sodium 138 (137-145) mmol/L Potassium 3.7 (3.4-5.1) mmol/L Chloride 105 (98-107) mmol/L Carbon Dioxide 27 (22-32) mmol/L BUN 10 (7-17) mg/dL Creatinine 0.66 (0.52-1.04) mg/dL Estimated GFR > 60 (>60) mL/min BUN/Creatinine Ratio 15.2 (6-22) Glucose 104 H (70-100) mg/dL Calcium 9.1 (8.4-10.2) mg/dL Total Bilirubin 0.6 (0.2-1.3) mg/dL AST 150 H (14-36) IU/L ALT 90 H (<35) IU/L Alkaline Phosphatase 51 (38-126) U/L Total Protein 6.8 (6.3-8.2) g/dL Albumin 4.2 (3.5-5.0) g/dL Globulin 2.6 (1.7-4.1) g/dL Albumin/Globulin Ratio 1.6 (1.0-2.8) HCG, Quant < 2.39 mIU/mL Urine Color Yellow Urine Appearance Clear Urine pH 8.0 (4.5-8.0) Ur Specific [place] 1.010 (1.000-1.035) Urine Protein Negative (Negative) Urine Glucose (UA) Negative (Negative) g/dL Urine Ketones Negative (NEGATIVE) Urine Occult Blood 2+ H (Negative) Urine Nitrate Negative (Negative) Urine Bilirubin Negative (NEGATIVE) Urine Urobilinogen 0.2 (0.2) E.U./dL Ur Leukocyte Esterase 1+ H (NEGATIVE) Urine RBC 0-1/hpf (0-5/HPF) Urine WBC 1-5/hpf (0-5/HPF) Ur Squamous Epith Cells 5-10 /hpf H (0-5/HPF) Urine Bacteria Many (>30) H (None) Ur Culture Indicated? Specimen cultured Vol Urine Centrifuged 10ml (spun) Imaging Data Bilateral upper extremity venous Doppler study: Radiologist's Impression: Close Chest CTA (Signed) Juan A Flores - 07/28/24 Peripheral Vascular Ultrasound (Signed) Fly Rey - 07/28/24 Launch?[address] [address] Ultrasound Report Signed Patient: Uyen Hammond MR#: [id number] : 1985 Acct:[id number] Age/Sex: 38 / F Date of Service: 07/28/24 Loc: ED Accession Number: [id number] Procedure: US perip venous up extrem brayan Ordering Provider: Efrain Guillen MD PROCEDURE: US [facility] VENOUS UP EXTREM BRAYAN INDICATIONS: Sent from [place], swelling R>L arms TECHNIQUE: Real-time imaging, as well as color and pulse Doppler interrogation, was performed of both upper extremity deep veins from the inferior neck to the antecubital fossa. COMPARISON: None. FINDINGS: Right: The internal jugular veins, visualized portions of the subclavian veins, axillary veins, and brachial veins are free of intraluminal thrombus. Where physically possible, the veins are normally compressible. Color and pulse Doppler demonstrate normal intraluminal flow, with expected phasicity and pulsatility. Additional scanning of the cephalic and basilic veins of the superficial system demonstrates normal compressibility, without thrombus. Left: The internal jugular veins, visualized portions of the subclavian veins, axillary veins, and brachial veins are free of intraluminal thrombus. Where physically possible, the veins are normally compressible. Color and pulse Doppler demonstrate normal intraluminal flow, with expected phasicity and pulsatility. Additional scanning of the cephalic and basilic veins of the superficial system demonstrates normal compressibility, without thrombus. IMPRESSION: No findings of deep venous thrombosis can be seen within either upper extremity. Dictated by: Fly Rey M.D. on 07/28/2024 at 13:45 Approved by: Fly Rey M.D. on 07/28/2024 at 13:45 CT angiogram chest: Radiologist's Impression: [address] [address] [address] Scan Report Signed Patient: Uyen Hammond MR#: [id number] : 1985 Acct:[id number] Age/Sex: 38 / F Date of Service: 07/28/24 Loc: ED Accession Number: [id number] Procedure: CT angio chest PE protocol Ordering Provider: Efrain Guillen MD PROCEDURE: CT ANGIO CHEST PE PROTOCOL INDICATIONS: R>L arm swelling, dyspnea, BUE US venous doppler neg TECHNIQUE: After the administration of intravenous contrast, 2 mm thick sections acquired from the pulmonary apices to the posterior costophrenic angles. 3-dimensional maximum intensity projection (MIP) coronal and sagittal reformats were then acquired through the thorax. For radiation dose reduction, the following was used: automated exposure control, adjustment of mA and/or kV according to patient size. COMPARISON: None. FINDINGS: Image quality: Diagnostic. Pulmonary arteries: Pulmonary arteries are normal in size, and demonstrate no intraluminal filling defects to suggest central pulmonary embolism. Lower Neck: No enlarged lymph nodes. Thyroid: No thyroid nodules which require sonographic follow up, per consensus guidelines. Axillae: No enlarged lymph nodes. Chest Wall: Unremarkable. Bones: Unremarkable. Lungs and Pleura: No pneumothorax or pleural effusions. No consolidation or suspicious nodules. Heart: Heart size is normal. No pericardial effusion. Thoracic Vessels: No aortic aneurysm. Mediastinum and Urvashi: No enlarged lymph nodes. Esophagus: No wall thickening. No hiatal hernia. Upper Abdomen: Visualized upper abdomen solid organs and bowel loops appear normal. IMPRESSION: No pulmonary embolus. No acute cardiopulmonary process. Dictated by: Juan A Flores M.D. on 07/28/2024 at 15:20 Approved by: Juan A Flores M.D. on 07/28/2024 at 15:22 ECG Data Attestation: I personally reviewed and interpreted this ECG as follows: Interpretation: Normal sinus rhythm with rate 71, no obvious ST segment elevation or depression changes. MN 124, QRS 84, QTC 439. MDM Narrative Medical decision making narrative: 38-year-old female with rwjwx-ewzkrrg-yahm-left upper extremity swelling since triceps exercises 2 weeks ago, had persisting triceps area discomfort, then swelling noted over the last couple of days uamcx-xcubofv-fkwd-left. She presented to [facility], labs were sent, referred for ultrasound evaluation to rule out DVT. Also consideration for CTA chest if there is a more proximal process that might account for the edema. No facial edema. Afebrile, sirs screen negative. Review of outside labs, from [facility] earlier today: White blood cell count 4800, hemoglobin 12.9, platelets 308,000. Sodium 139, potassium 3.9, chloride 102, serum CO2 29, creatinine 0.63, glucose 96. INR 1.0 noted. ESR 8. HCG negative. CPK 3127 was markedly elevated. Ultrasound bilateral upper extremity venous studies today, no clots seen, verbal sono tech report. Radiology report concurrent, see radiology dictated report. Rhabdomyolysis by CPK elevation, we will start IV fluids. Normal saline 1000 cc bolus. GFR adequate. CTA chest ordered CTA chest shows no acute abnormalities, no masses mentioned mediastinal otherwise, no pulmonary embolus, no cardiomegaly or pericardial effusion. See dictated radiology report. Case discussed briefly with hospitalist here Dr. Dunbar, CPK 3000 range noted, IV fluids given, he feels the patient would be safe for discharge with CPK less than 5000, relayed that advised to patient/, encouraged p.o. fluids and further follow up as an outpatient for now. Patient also encouraged to contact her drug and alcohol counselor and thyroid cancer doctors, unclear cause of her rhabdomyolysis, unclear if it could in some way be related to her thyroid cancer or thyroid replacement therapy or radio immune therapy. Unclear cause of her upper extremity edema, possibly lymphedema, or other cause. Does not seem allergic, no obstructing lesions identified by ultrasound and CTA imaging. Avoid vigorous exercise for now. Encouraged to recheck CPK level in clinic early next week at [place]. Return precautions. Discharged home with . Discharge Plan Departure Patient Disposition: Home Clinical Impression: Swelling of right upper extremity, Swelling of left upper extremity, Rhabdomyolysis, History of thyroid cancer Activity Restrictions/Additional Instructions: Right greater than left proximal upper arm swelling of unclear cause, triceps exercise recalled 2 weeks ago but not particularly vigorous in nature, no blunt trauma or other injuries. No blood thinner medications known. Referred from [facility] for ultrasound imaging. Vascular venous Doppler study of right and left arms performed, no clots or vascular abnormalities noted per Radiology report. Renal function adequate. CT angiogram of the chest was performed, or masses or changes were noted, per Radiology report. [facility] labs did show elevated CPK suggestive of rhabdomyolysis, unclear underlying cause. IV fluids given prior to CT imaging, also to encourage hydration to excrete the CPK faster. Take plenty of fluids encouraged oral fluids to help reduce the CPK levels. Phone consultation with hospitalist here Dr. Dunbar, who felt that CPK level less than 5000 did not warrant inpatient further hydration for now, as it would not likely be increased risk of renal injury as long as it stays less than 5000. Encouraged to contact your endocrine provider to see if they might have any insight as to the cause of your rhabdomyolysis, if somehow related to thyroid replacement or underlying cancer therapy. Recheck CP levels and symptoms and examination advised early next week with your regular provider back home on [facility]. Return earlier to this/nearest emergency department for any change worsening symptoms or any concerns prior Prescriptions: No Action Complete 14 mg iron- 400 mcg Tablet 1 tab PO DAILY omega 6-sop-sdo-fish oil [Fish Oil] 1,000 mg (120 mg-180 mg) Capsule 1 cap PO DAILY ibuprofen 600 mg tablet 600 mg PO TID PRN (Reason: pain) Qty: 14 0RF Referrals: Mejia Calle MD [Primary Care Provider] - Stand Alone Forms: Patient Portal/API/Survey
[2024-07-28 13:28] LABS: Add Manual Diff / Slide Review NO; Basophils Absolute Auto 0 /uL (0-100); Eosinophils Absolute Auto 100 /uL (0-450); Eosinophils Percent Auto 1.6 % (2-4); Hematocrit 37.3 % (36-46); Lymphocytes Absolute Auto 1600 /uL (1100-4500); Mean Corpuscular Hemoglobin 31.1 PG (26-34); Mean Corpuscular Volume 88.9 fL (80-100); Monocytes Absolute Auto 200 /uL (0-900); Monocytes Percent Auto 4.8 % (3-14); Neutrophils Absolute Auto 2800 /uL (1500-7000); Neutrophils Percent Auto 58.6 % (50-75); Platelet Count 328 X10^3/uL (150-400); Red Blood Cell Count 4.19 X10^6/uL (4.0-5.2); White Blood Cell Count 4.7 X10^3/uL (4.5-11.0)
[2024-07-28 13:40] LABS: Alanine Aminotransferase 90 IU/L (<35); Albumin 4.2 g/dL (3.5-5.0); Albumin Globulin Ratio 1.6 (1.0-2.8); Alkaline Phosphatase 51 U/L (38-126); Aspartate Aminotransferase 150 IU/L (14-36); BUN Creatinine Ratio 15.2 (6-22); Bilirubin Total 0.6 mg/dL (0.2-1.3); Blood Urea Nitrogen 10 mg/dL (7-17); Calcium 9.1 mg/dL (8.4-10.2); Carbon Dioxide 27 mmol/L (22-32); Chloride 105 mmol/L (98-107); Estimated Glomerular Filt Rate > 60 mL/min (>60); Globulin 2.6 g/dL (1.7-4.1); Glucose 104 mg/dL (70-100); HEMOLYSIS < 15 (0-50); Potassium 3.7 mmol/L (3.4-5.1); Sodium 138 mmol/L (137-145); Total Protein 6.8 g/dL (6.3-8.2)
[2024-07-28 13:57] LABS: HCG Quantitative /Beta subunit < 2.39 mIU/mL
--- NOTE | 2024-07-28 14:29 | DI.CT.S_ITS ---
PROCEDURE: CT ANGIO CHEST PE PROTOCOL INDICATIONS: R>L arm swelling, dyspnea, BUE US venous doppler neg TECHNIQUE: After the administration of intravenous contrast, 2 mm thick sections acquired from the pulmonary apices to the posterior costophrenic angles. 3-dimensional maximum intensity projection (MIP) coronal and sagittal reformats were then acquired through the thorax. For radiation dose reduction, the following was used: automated exposure control, adjustment of mA and/or kV according to patient size. COMPARISON: None. FINDINGS: Image quality: Diagnostic. Pulmonary arteries: Pulmonary arteries are normal in size, and demonstrate no intraluminal filling defects to suggest central pulmonary embolism. Lower Neck: No enlarged lymph nodes. Thyroid: No thyroid nodules which require sonographic follow up, per consensus guidelines. Axillae: No enlarged lymph nodes. Chest Wall: Unremarkable. Bones: Unremarkable. Lungs and Pleura: No pneumothorax or pleural effusions. No consolidation or suspicious nodules. Heart: Heart size is normal. No pericardial effusion. Thoracic Vessels: No aortic aneurysm. Mediastinum and Urvashi: No enlarged lymph nodes. Esophagus: No wall thickening. No hiatal hernia. Upper Abdomen: Visualized upper abdomen solid organs and bowel loops appear normal. IMPRESSION: No pulmonary embolus. No acute cardiopulmonary process. Dictated by: Juan A Flores M.D. on 07/28/2024 at 15:20 Approved by: Juan A Flores M.D. on 07/28/2024 at 15:22
[2024-07-28] MEDS: SODIUM CHLORIDE 0.9% 1,000 ML 1000 ML IV (14:34)
[2024-07-28 15:14] LABS: Appearance Urine UA CLEAR; Bilirubin Urine UA NEGATIVE (NEGATIVE); Color Urine UA YELLOW; Glucose Urine UA NEGATIVE (Negative); Ketones Urine UA NEGATIVE (NEGATIVE); Leukocyte Esterase Urine UA 1+ (NEGATIVE); Nitrite Urine UA NEGATIVE (Negative); Occult Blood Urine UA 2+ (Negative); Protein Urine UA NEGATIVE (Negative); Urobilinogen Urine UA 0.2 E.U./dL (0.2)
[2024-07-28 15:20] LABS: Bacteria Urine Many (>30); Culture Indicated Urine Specimen Cultured; RBC Urine 0-1/HPF (0-5/HPF); Squamous Epithelial Cell Urine 5-10 /HPF (0-5/HPF); Urine Volume 10mL (spun); WBC Urine 1-5/HPF (0-5/HPF)
[2024-07-28] MEDS: CEFDINIR 300 MG CAPSULE PO (15:34)
--- NOTE | 2024-07-28 16:30 | PM.CALLCOV.1 ---
Call Coverage Note Note Narrative of Care Provided: 38 year old female, medicine asked about possible admission for IV hydration for possible rhabdomyolysis. CK reported at 3100. Initially hypertensive and anxious, now improved on repeat. She is able to tolerate a diet. Creatinine appears to be similar to prior values at 0.66. At this time, recommend aggressive oral rehydration as an outpatient and outpatient follow up with repeat CK values in the coming days with primary care provider. Given patient's recent past history, also consider alternative causes for elevated CK values.
--- NOTE | 2024-07-28 17:03 | EKG_ITS ---
[address] [address] Test Date: 2024-07-28 Pat Name: Uyen Hammond Department: [facility] Room: Gender: Female Video Camera Operator: JENNA : 1985 Requested By: Order Number: [id number] Reading MD: Renny Dunbar Measurements Intervals [place] Rate: 71 P: 46 NE: 124 QRS: -21 QRSD: 84 T: 32 QT: 404 QTc: 439 Interpretive Statements Normal sinus rhythm Possible Anterior infarct , age undetermined Electronically Signed On 07-29-2024 15:32:43 PST by Renny Dunbar
--- NOTE | 2024-07-28 17:36 | PC.NURSE ---
Reassessed; no change
== END 2024-07-28 17:37 | disposition home or self-care (01) ==
PROVIDERS: Emergency Provider Emergency Medicine; PCP Family Medicine
DX: R60.0 Localized edema (principal); M62.82 Rhabdomyolysis; Z85.850 Personal history of malignant neoplasm of thyroid; R07.9 Chest pain, unspecified
CPT/HCPCS: 71275; 80053; 81001; 84702; 85025; 87077; 87086; 87147; 93005; 93970; 96360; 96361; 99284; Q9967